=== PATIENT | male | born 1960 | race Caucasian/White ===

== ENCOUNTER 2019-01-24 10:20 | Emergency (ER) | payer OTHER ==
[~2019-01-24] VITALS: Ht 182.9 cm; Wt 79.4 kg
--- NOTE | 2019-01-24 10:44 | PHYS DOC ---
Past History Past Medical History: CVA Past Surgical History: Other Alcohol Use: None Drug Use: None Adult General Chief Complaint Chief Complaint: TESTICULAR PAIN OR INJURY HPI HPI Patient is a 58 year old male who presents with complaint of right testicular pain and swelling. Patient states he awoke with symptoms this morning. Notes that his pain is currently minimal. Started to notice an increase in size mostly along the right side of the testicle and scrotum. Denies any associated fever, difficulty with urination, nausea, or abdominal pain. Denies previous history of similar symptoms. Recently underwent left knee arthroscopic surgery and has been performing stretching exercises without significant difficulty. Denies any recent trauma to the groin. Review of Systems Review of Systems Constitutional: Denies fever or chills [] Eyes: Denies change in visual acuity, redness, or eye pain [] HENT: Denies nasal congestion or sore throat [] Respiratory: Denies cough or shortness of breath [] Cardiovascular: Denies chest pain or edema[] GI: Denies abdominal pain, nausea, vomiting, bloody stools or diarrhea [] : Right-sided testicular discomfort and swelling[] Musculoskeletal: Denies back pain or joint pain [] Integument: Denies rash or skin lesions [] Neurologic: Denies headache, focal weakness or sensory changes [] All other systems were reviewed and found to be within normal limits, except as documented in this note. Allergies Allergies Allergies Coded Allergies Type Severity Reaction Last Updated Verified No Known Drug Allergies 01/24/19 No Physical Exam Physical Exam Constitutional: Well developed, well nourished, no acute distress, non-toxic appearance. [] HENT: Normocephalic, atraumatic, bilateral external ears normal, oropharynx moist, no oral exudates, nose normal. [] Eyes: PERRLA, EOMI, conjunctiva normal, no discharge. [] Neck: Normal range of motion, no tenderness, supple, no stridor. [] Cardiovascular:Heart rate regular rhythm, no murmur [] Lungs & Thorax: Bilateral breath sounds clear to auscultation [] Abdomen: Bowel sounds normal, soft, no tenderness, no masses, no pulsatile masses. : Penis is circumcised and appears normal, right testicle appears slightly high riding and mild to moderately enlarged compared to left testicle, mild erythema along right side of scrotum without induration, no palpable mass or hernia in bilateral inguinal canals, no significant localized tenderness present on right testicle[] Skin: Warm, dry, no erythema, no rash. [] Back: No tenderness, no CVA tenderness. [] Extremities: No tenderness, no cyanosis, no clubbing, ROM intact, no edema. [] Neurologic: Alert and oriented X 3, normal motor function, normal sensory function, no focal deficits noted. [] Current Patient Data Vital Signs Vital Signs Date Time Temp Pulse Resp B/P (MAP) Pulse Ox O2 Delivery O2 Flow Rate FiO2 01/24/19 10:34 98.1 51 16 98 Room Air Lab Results Laboratory Tests Test 01/24/19 10:50 Urine Collection Type Unknown Urine Color Yellow Urine Clarity Clear Urine pH 6.0 Urine Specific Hart <=1.005 Urine Protein Neg Urine Glucose (UA) Neg mg/dL Urine Ketones (Stick) Neg mg/dL Urine Blood Neg Urine Nitrite Neg Urine Bilirubin Neg Urine Urobilinogen Dipstick 0.2 mg/dL Urine Leukocyte Esterase Neg Urine RBC 0 /HPF Urine WBC 0 /HPF Urine Squamous Epithelial Cells Occ /LPF Urine Bacteria 0 /HPF EKG EKG Not performed[] Radiology/Procedures Radiology/Procedures [address] [id number] IMAGING REPORT Signed PATIENT: TRENT ALDRICH RACCOUNT: [id number] : 1960 LOCATION: ER AGE: 58 SEX: M EXAM STATUS: REG ER ORD. PHYSICIAN: NEELAM MA MD REASON: right testicular pain and swelling PROCEDURE: TESTICULAR/SCROTUM Examination: TESTICULAR/SCROTUM History: Right testicle pain and swelling Comparison/Correlation: None Findings: Scrotal ultrasound exam performed. Right testicle measures 4.7 cm x 2.9 cm x 2.4 cm left testicle measures 3 cm x 2.4 cm x 5 cm. Normal testicular echotexture and flow bilaterally seen with no mass. Bilateral hydroceles are present. Mild scrotal wall thickening. Right epididymal cyst or spermatocele measuring up to 1.5 cm diameter is present. No abnormal flow to suggest epididymitis.. Impression: Small to moderate size bilateral hydrocele. No evidence of testicular torsion. No abnormal flow to suggest epididymoorchitis. Electronically signed by: Ricardo Garcia MD (01/24/2019 11:52 AM) [facility] DICTATED AND SIGNED BY: RICARDO GARCIA MD DATE: 01/24/19 1152 CC: JORDY VILLAR; NEELAM MA MD ~ [] Course & Med Decision Making Course & Med Decision Making Pertinent Labs and Imaging studies reviewed. (See chart for details) Ultrasound imaging shows no sign of acute infection or torsion. Hydrocele was noted on ultrasound. No other abnormalities noted. Spoke with patient regarding plan of care. Advised patient to start ibuprofen and cool compresses to the affected area and recommended follow-up with primary doctor in 2 days for reevaluation. Advised return to the emergency department for any worsening symptoms. Patient was understanding and in agreement with treatment plan.[] Dragon Disclaimer Dragon Disclaimer This electronic medical record was generated, in whole or in part, using a voice recognition dictation system. Departure Departure: Impression: Primary Impression: Hydrocele in adult Disposition: 01 HOME, SELF-CARE Condition: STABLE Referrals: JORDY VILLAR (PCP) Patient Instructions: Testicular Problems and Self-Exam Additional Instructions: Your ultrasound today showed hydrocele, which is a fluid collection that can develop around the testicle. This does not appear to be infectious and there are no other signs of a surgical emergency associated with your condition at this time. It is important that she follow-up with your primary doctor in 2 days to have this reevaluated. You may use ibuprofen [id number] as directed on packaging for treatment of inflammation and pain. He may also use cold compresses to help reduce swelling in the groin. Please return to the emergency department if you develop any worsening or severe symptoms. NEELAM MA MD Jan 24, 2019 10:43
[2019-01-24 11:14] LABS: BACTERIA,URINE 0 /HPF (0-FEW); BILIRUBIN,URINE NEG (NEG); CLARITY,URINE CLEAR; COLOR,URINE YELLOW; GLUCOSE,URINE NEG (NEG); NITRITE,URINE NEG (NEG); RBC,URINE 0 /HPF (0-2); SQUAMOUS EPITHELIAL CELL,UR OCC /LPF; UROBILINOGEN,URINE 0.2 mg/dL (0.2 mg/dL); WBC,URINE 0 /HPF (0-4)
--- NOTE | 2019-01-24 11:55 | RAD ---
Examination: TESTICULAR/SCROTUM History: Right testicle pain and swelling Comparison/Correlation: None Findings: Scrotal ultrasound exam performed. Right testicle measures 4.7 cm x 2.9 cm x 2.4 cm left testicle measures 3 cm x 2.4 cm x 5 cm. Normal testicular echotexture and flow bilaterally seen with no mass. Bilateral hydroceles are present. Mild scrotal wall thickening. Right epididymal cyst or spermatocele measuring up to 1.5 cm diameter is present. No abnormal flow to suggest epididymitis.. Impression: Small to moderate size bilateral hydrocele. No evidence of testicular torsion. No abnormal flow to suggest epididymoorchitis. Electronically signed by: Ricardo Montgomery MD (01/24/2019 11:52 AM) [facility]
[2019-01-24 12:29] VITALS: BP 119/67
== END 2019-01-24 12:30 | disposition home or self-care (01) ==
LOC: ER 10:20
DX: N43.3 Hydrocele, unspecified (principal); Z86.73 Personal history of transient ischemic attack (TIA), and cerebral infarction without residual deficits
CPT/HCPCS: 76870; 81001; 99285-25